=== PATIENT | male | born 1950 | race Caucasian/White ===

== ENCOUNTER 2024-03-13 21:07 | Emergency (ER) | payer OTHER ==
[~2024-03-13] VITALS: Ht 167.6 cm; Wt 83.9 kg
== END 2024-03-14 02:12 | disposition left against medical advice (07) ==
LOC: ER 21:07
DX: Z53.21 Procedure and treatment not carried out due to patient leaving prior to being seen by health care provider (principal)
CPT/HCPCS: 74019